=== PATIENT | male | born 1990 | race Caucasian/White ===

== ENCOUNTER 2023-06-06 09:20 | Emergency (ER) | payer BC, SELFPAY ==
[2023-06-06 09:28] VITALS: BP 160/98; PULSE 79; TEMP 36.8; O2SAT 99; BMI 27.4
--- NOTE | 2023-06-06 09:38 | CT_ITS ---
The [address] [address] Patient Name: CHIVO CARRILLO MRN: [id number] date: 1990 Sex: M Assigned Patient Location: ER Current Patient Location: ER Accession/Order Number: [id number] Exam Date: 06/06/2023 09:52 Report Date: 06/06/2023 11:43 At the request of: ANA PAULA XIONG Procedure: CT facial bones wo con PROCEDURE: CT facial bones wo con CLINICAL INDICATION: 33 years Male facial injury COMPARISONS: None.. TECHNIQUE: Noncontrast CT imaging of the facial bones was performed. Coronal and sagittal reformations were created. Individualized dose optimization technique was used for the procedure performed. FINDINGS: There is no acute fracture or subluxation. Mild mucosal thickening is seen within the dependent left maxillary sinus. Remaining paranasal sinuses are well aerated. Orbital margins are well maintained. Surrounding soft tissues are also unremarkable. CT/CT facial bones wo con IMPRESSION: Unremarkable exam. Electronically authenticated by: PATRICK THOMAS Date: 06/06/2023 11:43
--- NOTE | 2023-06-06 09:41 | ED.HEATRA1 ---
HPI HPI - Head Injury General Chief complaint: Head Injury Stated complaint: FACIAL INJURY/PAIN Time Seen by Provider: 06/06/23 09:24 Source: patient Mode of arrival: walk-in Limitations: no limitations History of Present Illness HPI Narrative: 33-year-old male presents for an injury to his face. 3 days ago at work he was hit by a metal pipe on the right side of his face causing a small transverse bruise but there was no laceration or bleeding. His teeth feel numb on that side and he has some pain below his right eye. No LOC or headache or neck pain. No other injury was sustained. His wanted him to get checked out so he came in. Related Data Home Medications ?Medication ?Instructions ?Recorded ?Confirmed No Known Home Medications 06/06/23 06/06/23 Allergies Allergy/AdvReac Type Severity Reaction Status Date / Time No Known Drug Allergies Allergy Verified 06/06/23 09:28 Opioid HPI Opioid Management Most Recent Pain and Opioid Data: Last Pain Scale 2 06/06/23 09:35 Review of Systems ROS Narrative A ten point review of systems is negative except as noted above. Exam Narrative Exam Narrative: Nurses note and vital signs reviewed and patient is not hypoxic. General: The patient appears well and in no apparent distress. Patient is resting comfortably on cart. Skin: Warm, dry, no pallor noted. There is no rash noted. Head: Normocephalic, there is a 2 cm transverse linear bruise on the right side of his face below his eye and above the corner of his lip. There is no laceration. No intraoral lesions such as bruising or laceration. Teeth are intact. Cervical spine nontender. Eye: Normal conjunctiva, no drainage Ears, Nose, Mouth, and Throat: oral mucosa is moist. Nares patent. Cardiovascular: Regular Rate and Rhythm Respiratory: Patient is in no distress, no accessory muscle use, lungs are clear to auscultation, no wheezing, rales or rhonchi Back: non-tender GI: Soft and nontender Musculoskeletal: The patient has no evidence of calf tenderness, no pitting edema, symmetrical pulses noted bilaterally Neurological: A&O, normal speech Psychiatric: Cooperative Constitutional Vital Signs, click to edit/add: Last Vital Signs Temp 98.3 F 06/06/23 09:28 Pulse 79 06/06/23 09:28 Resp 18 06/06/23 09:28 BP 160/98 H 06/06/23 09:28 Pulse Ox 99 06/06/23 09:28 O2 Del Method Room Air 06/06/23 09:28 Course Vital Signs Vital signs: Vital Signs Temperature 98.3 F 06/06/23 09:28 Pulse Rate 79 06/06/23 09:28 Respiratory Rate 18 06/06/23 09:28 Blood Pressure 160/98 H 06/06/23 09:28 Pulse Oximetry 99 06/06/23 09:28 Oxygen Delivery Method Room Air 06/06/23 09:28 Temperature 98.3 F 06/06/23 09:28 Pulse Rate 79 06/06/23 09:28 Respiratory Rate 18 06/06/23 09:28 Blood Pressure 160/98 H 06/06/23 09:28 Pulse Oximetry 99 06/06/23 09:28 Oxygen Delivery Method Room Air 06/06/23 09:28 MDM - Head Injury MDM Narrative Medical decision making narrative: CT scan of facial bones is negative and he is reassured. Treatment diagnosis and follow-up were discussed with the patient. Differential Diagnosis Differential diagnosis: Likely other (Facial contusion, facial fracture) Imaging Data CT facial bones: Radiologist's impression: ITS Impressions Facial Bones CT 06/06/23 09:38 IMPRESSION: Unremarkable exam. Electronically authenticated by: PATRICK THOMAS Date: 06/06/2023 11:43 Discharge Plan Discharge Stand Alone Forms: Portal Instructions Chief Complaint: Head Injury Clinical Impression: Facial contusion Patient Disposition: Home, Self-Care Time of Disposition Decision: 11:50 Condition: Good Mode of Transportation: Private Vehicle Prescriptions / Home Meds: No Action No Known Home Medications Print Language: Citizen Of [place] Instructions: Facial Contusion (ED) Referrals: Physician,Non-Staff, MD [Primary Care Provider] - 1 week
[2023-06-06 11:56] VITALS: BP 132/74; PULSE 87; O2SAT 98
== END 2023-06-06 11:56 | disposition home or self-care (01) ==
PROVIDERS: Emergency Provider Emergency Medicine
DX: S00.83XA Contusion of other part of head, initial encounter (principal); W22.8XXA Striking against or struck by other objects, initial encounter
CPT/HCPCS: 70486; 99284

== ENCOUNTER 2024-10-01 16:06 | Emergency (ER) | payer OTHER, SELFPAY ==
--- OUTSIDE RECORDS SUMMARY | 2024-09-24 04:48 | XMS_ITS | Continuity of Care Document ---
Author Organization [facility] Address [address] [place] [address] Phone Care Team Providers Care Channel Man Name Role Phone Ángel Meeks DO Unavailable Unavailable Allergies, Adverse Reactions, Alerts Substance Reaction Status Criticality No Known Allergies Active No Inform ation Procedures Procedure Date OFFICE/OUTPATIENT VISIT, EST Bp scrn perf rec interval LDL-C <100 MG/DL DIAST BP < 80 MM HG SYST BP < 130 MM HG MED LIST DOCD IN [facility] RVW MEDS BY RX/DR IN [facility] TOBACCO NON-USER Pos clin depres scrn f/u doc PSYCH DIAGNOSTIC EVALUATION OFFICE/OUTPATIENT VISIT, EST LDL-C <100 MG/DL DIAST BP 80-89 MM HG SYST BP < 130 MM HG ROUTINE VENIPUNCTURE OFFICE/OUTPATIENT VISIT, NEW Bp scrn perf rec interval DIAST BP < 80 MM HG SYST BP < 130 MM HG TOBACCO NON-USER Advance Directives Directive Yes / No Effective Date File Name No Information Encounters Encounter Description Practice Location Reason(s) For Visit Diagnoses Date Provider Providers Copied on Encounter OFFICE/OUTPA TIENT VISIT, EST [facility], [address] [place] [address], [id number] , [place] tel: [phone] [facility] F/U Depression (chief complaint) Body mass index [BMI] 24.0-24.9, adultMarital problemsMild depressionVitamin D deficiency, unspecified 5 Plank DO Ángel. [address] [place] [address], [id number] , [place]. tel: [phone] PSYCH DIAGNOSTIC EVALUATION [facility], [address] [place] [address], [id number] , [place] tel: [phone] [facility] Major depressive disorder, recurrent severe without psychotic featuresBody mass index [BMI] 24.0-24.9, adult 5 Adams Murphy. [address] [place] [address], [id number], [place]. tel: [phone] OFFICE/OUTPA TIENT VISIT, [facility], [address] [place] [address], [id number] , [place] tel: [phone] [facility] Office Visit (chief complaint) Marital problemsOther depression 5 Plank DO Ángel. [address] [place] [address], [id number] , [place]. tel: [phone] OFFICE/OUTPA TIENT VISIT, [facility], [address] [place] [address], [id number] , [place] tel: [phone] [facility] Office Visit (chief complaint)L ab Draw (chief complaint) Potential exposure to STDScreening for HIV (human immunodeficiency virus)Need for hepatitis C screening testDiabetes mellitus screeningBody mass index [BMI] 25.0-25.9, adultMild depression 5 Plank DO Ángel. [address] [place] [address], [id number] , [place]. tel: [phone] Family History Family Member Type Diagnosis Age At Onset Mother Problem ADD/ADHD Brother Problem ADD/ADHD Brother Problem Cardiovascular disease Sister Problem Developmental delay Payers Payer name Insurance type Covered constitution party ID Cookie khalil(barb THORPE [id number] Social History Type Description Quantity Date Captured Comments Alcohol Use Details Caffeine Use Details coffee and energy drinks Tobacco Use Status Current non-smoker Smoking Status Never smoker Non-Smoking Tobacco Use Details : No Details Available : No Details Available Sex Male Vital Signs Date / Time: Height Weight BMI Pulse Rate Blood Pressure Temperature Respiratory Rate Body Surface Area Head Circumference Head Circ. Percentile Wt./Tanner. Percentile BMI percentile Pulse Ox Inhaled Ox 9:20 AM 68.00 in 74.253 kg (163.70 lbs) 24.8 9 kg/m eter (2) 62 /min 112/72 mm[Hg] 96.80 F 16 /min 98 % 21 % Chief Complaint And Reason For Visit From encounter dated '09/24/2024 08:48'. F/U Depression (chief complaint). Description: Saw Lily Lamas for counseling yesterday, says he hadhis first appointment. Pandora comfortable and has follow-up appointment.Taking 5,000 units of VitaminD3, says for 5 days. Says he is feeling better.//Amanda RN Reason For Referral Reason For Referral No Information Plan Of Treatment Date Type Action Status Goal RLP. Due on due Goal Hepatitis C screening. Due o n due Goal Influenza vaccine. Due on due Goal PRAPARE ASSESSMENT. Due on A due Goal Tdap Vaccine. Due on 2024 due Goal Unhealthy drug use screening . Due on due Goal Lipid panel. Due on 032 due Goal Tdap. Due on due Goal Depression screening. Due on due Goal Lifestyle education regardin g diet completed Goal Influenza vaccine. Due on due Goal Hepatitis C screening. Due o n due Goal Tdap. Due on due Goal RLP. Due on due Goal Unhealthy drug use screening . Due on due Goal Lipid panel. Due on due Goal Tdap Vaccine. Due on 2024 due Goal PRAPARE ASSESSMENT. Due on due Goal Depression screening. Due on due Goal Hep A. Due on e Goal Dietary manageme nt education, guidance, and counseling completed Goal Lipid panel. Due on due Goal PRAPARE ASSESSMENT. Due on due Goal Influenza vaccine. Due on due Goal Tdap Vaccine. Due on 2024 due Goal Unhealthy drug use screening . Due on due Goal Depression screening. Due on due Goal RLP. Due on due Goal Tdap. Due on due Goal Hepatitis C screening. Due o n due Goal Tdap Vaccine. Due on 2024 due Goal RLP. Due on due Goal PRAPARE ASSESSMENT. Due on due Goal Influenza vaccine. Due on due Goal Lipid panel. Due on due Goal Hep A. Due on du e Goal Hepatitis C screening. Due o n due Goal Depression screening. Due on due Goal Tdap. Due on due Goal Unhealthy drug use screening . Due on due Goal Lifestyle education isabel guido diet completed Appointment Vamsi Aldridge BOOKED Appointment Vamsi Aldridge BOOKED History Of Present Illness Encounter Date Complaint History Of Prese nt Illness F/U Depression Saw Lily rader or counseling yesterday, says he had his first appointment. Pandora comfortable and has follow-up appointment.Taking 5,000 units of Vitamin D3, says for 5 days. Says he is feeling better.//Amanda PAGE Office Visit Patient is here to review labwork. Patient denies any concerns at this time. Patient is wanting information on counseling services. Patient admits to smoking marijuana and vaping. patient occasionally drinks alcohol. //KAYLEE Mitchell Lab Draw Lab draw x2 atte mpts right forearm, pressure dressing applied. Patient tolerated well.//KAYLEE Mitchell Office Visit Patient is here for potential exposure to HSV 1. Patient states he has multiple partners and would like to be checked for STI's today. Patient has not been to primary care since he was roughly 17 years old. Patient denies any symptoms today. Patient denies use of tobacco. Patient admits to vaping and smoking marijuana. //KAYLEE Mitchell Functional Status Date Functional Assessmen t No Information Instructions Date Instruction Additional Infor jeffrey Giving encouragement to exercise Related to Body mass index [BMI] 24.0-24.9, adult Lifestyle education regarding di et Related to Body mass index [BMI] 24.0-24.9, adult Giving encouragement to exercise Related to Body mass index [BMI] 24.0-24.9, adult Dietary management e ducation, guidance, and counseling Related to Body mass index [BMI] 24.0-24.9, adult Giving encouragement to exercise Related to Body mass index [BMI] 25.0-25.9, adult Lifestyle education regarding di et Related to Body mass index [BMI] 25.0-25.9, adult Assessments Type Assessment Date assessment Body mass index [BMI] 24.0-24.9, adult assessment Marital problems assessment Mild depression assessment Vitamin D deficiency, unspecifie d impression going to niraj morales. he is very happy w/ lily brady.he states it still looks like marriage will not survive,but he is ok impression states no interest a ntidepressant or other at this time. sleeping habits improved. he will continue counseling and notify lily or myself of decline impression now on otc supplemen t. f/u 6 wks to make sure mental health remains stable Mental Status Date Cognitive Assessment Orientation - Leslie ed to time, place, person, situation. Patient Care Teams Name Effective Dates (start - stop) Status Members No Information
[2024-10-01 16:11] VITALS: BP 133/91; PULSE 76; TEMP 36.6; O2SAT 98; BMI 24.3
--- NOTE | 2024-10-01 16:21 | PC.NURSE ---
fluid filled blisters to both left 2nd and 3rd digit, top skin removed at various areas to burned site.
--- NOTE | 2024-10-01 17:20 | ED_ITS ---
HPI - Skin/Abscess/Foreign Bdy General Chief complaint: Skin/Abscess/Foreign Body Stated complaint: BWC, L HAND INJURY Time Seen by Provider: 10/01/24 16:29 Source: patient Mode of arrival: walk-in History of Present Illness HPI narrative: 34-year-old male presents to the ED with carrasquillo to the dorsal aspect of the left index and middle fingers sustained at work this morning around 5:30 AM. He reports that while moving hot plastic, some plastic landed on his hand. When he was removing the plastic from his hand, some skin was inadvertently removed. On examination, the index finger has two blisters, and the middle finger has a 2 x 3 cm area of skin loss on the radial side with an adjacent blister. There is no circumferential involvement, and the palmar surfaces and hand are unaffected. Distal sensation and capillary refill are intact. Pain is currently controlled. Last tetanus was 10 years ago. Related Data Previous Rx's ?Medication ?Instructions ?Recorded silver sulfadiazine 1 % topical 1 applic topical DAILY #20 grams 10/01/24 cream Allergies Allergy/AdvReac Type Severity Reaction Status Date / Time No Known Drug Allergies Allergy Verified 06/06/23 09:28 PFSH PFSH Social History Little interest or pleasure in doing things: not at all Feeling down, depressed, or hopeless: not at all Exam Constitutional Vital Signs, click to edit/add: Last Vital Signs Temp 97.8 F 10/01/24 16:11 Pulse 76 10/01/24 16:11 Resp 16 10/01/24 16:11 BP 133/91 10/01/24 16:11 Pulse Ox 98 10/01/24 16:11 O2 Del Method Room Air 10/01/24 16:11 Documenting provider has reviewed patient's vital signs: yes Common normals: no apparent distress, average body habitus, oriented x3, no limitations, healthy appearing, alert and well nourished [facility] Common normals: normocephalic and head/scalp atraumatic Face and sinus: normal facial exam Nose: external nose normal Respiratory Common normals: normal respiratory effort and clear to auscultation bilaterally Cardio Common normals: regular rate, regular rhythm and no murmurs Extremity Common normals: normal to inspection, full ROM and normal capillary refill Left upper extremity: hand and digits (carrasquillo as noted in the MDM) Neuro Common normals: oriented x3, moves all extremities, no focal motor deficits and no sensory deficits noted Psych Common normals: mental status grossly normal, thought process normal, cooperative, affect normal and speech normal Course Vital Signs Vital signs: Vital Signs Temperature 97.8 F 10/01/24 16:11 Pulse Rate 76 10/01/24 16:11 Respiratory Rate 16 10/01/24 16:11 Blood Pressure 133/91 10/01/24 16:11 Pulse Oximetry 98 10/01/24 16:11 Oxygen Delivery Method Room Air 10/01/24 16:11 Temperature 97.8 F 10/01/24 16:11 Pulse Rate 76 10/01/24 16:11 Respiratory Rate 16 10/01/24 16:11 Blood Pressure 133/91 10/01/24 16:11 Pulse Oximetry 98 10/01/24 16:11 Oxygen Delivery Method Room Air 10/01/24 16:11 MDM - Skin/Abscess/Foreign Bdy [facility] Narrative Medical decision making narrative: 34-year-old right handed male presents with partial-thickness carrasquillo to the dorsal aspects of the left index and middle fingers sustained from hot plastic exposure at work earlier this morning. Examination reveals two blisters on the index finger and a 2 x 3 cm area of skin loss with an adjacent blister on the radial aspect of the middle finger. There is no circumferential involvement, no extension into the hand, and the palmar surfaces are uninvolved. Distal perfusion and sensation are intact. The wounds were thoroughly cleansed with chlorhexidine, blisters were carefully incised for fluid evacuation without unroofing, and the areas were dressed with silver sulfadiazine (Silvadene) ointment and non-adherent dressings secured with bulky gauze and tube gauze. Pain is controlled at present. The patient was counseled on wound care and return precautions and will return to the ED in 2 days for reassessment due to lack of local wound care facilities. He will also follow up with his Worker?s Compensation provider. A prescription for silver sulfadiazine ointment (Silvadene) was provided. Patient will be discharged in stable condition he understands all discharge instructions and will follow-up as discussed he is accompanied here today by his significant other. Discharge Plan Discharge Chief Complaint: Skin/Abscess/Foreign Body Clinical Impression: Second degree burn of multiple fingers of left hand excluding thumb Patient Disposition: Home, Self-Care Time of Disposition Decision: 17:21 Condition: Good Prescriptions / Home Meds: New silver sulfadiazine 1 % cream 1 applic topical DAILY Qty: 20 0RF Rx Instructions: apply a coating over burn area as demonstrated prior to dressing the area. Print Language: [place] Instructions: Second-Degree Burn (ED) Additional Instructions: Keep the burn clean and dry, gently wash it once a day, and apply the prescribed ointment. Cover with a sterile dressing and change it daily as discussed. You ma y take [id number] pain medicine as needed. Watch for signs of infection such as increased redness, swelling, pus, or fever, and contact your doctor if these occur. Avoid soaking the burn in water or exposing it to the sun. Follow up in 2 days here at the ED as discussed. Further follow up can be discussed at that time as well. Then occ med or your healthcare provider in 1 weeks to check healing, and use moisturizer and sun protection once the burn is healed. Referrals: emergency dept [Other] - As soon as possible Referral Note: return in 2 days for recheck Ángel Meeks DO [Primary Care Provider] - 1 week
[2024-10-01] MEDS: SILVER SULFADIAZINE 1% CREAM 25 GM TUBE 1 APPLIC TOPICAL (17:24)
[2024-10-01] MEDS: DIPHTH,PERTUSS(ACELL),TET VAC 0.5 ML SYRINGE IM (17:25)
== END 2024-10-01 18:00 | disposition home or self-care (01) ==
PROVIDERS: Emergency Provider Emergency Medicine; PCP Family Medicine
DX: T23.232A Burn of second degree of multiple left fingers (nail), not including thumb, initial encounter (principal); X19.XXXA Contact with other heat and hot substances, initial encounter; Z23 Encounter for immunization
CPT/HCPCS: 90471; 99284